=== PATIENT | female | born 1960 | race African-American/Black ===

== ENCOUNTER 2017-10-26 11:47 | Emergency (ER) | payer MEDICAID ==
[~2017-10-26] VITALS: Ht 162.6 cm; Wt 96.2 kg
[2017-10-26 14:13] VITALS: BP 175/62
== END 2017-10-26 15:16 | disposition home or self-care (01) ==
LOC: ER 11:47
DX: H61.23 Impacted cerumen, bilateral (principal); E11.9 Type 2 diabetes mellitus without complications; E78.5 Hyperlipidemia, unspecified; I10 Essential (primary) hypertension
CPT/HCPCS: 69209

== ENCOUNTER 2018-02-15 19:53 | Inpatient (IN) | payer MEDICAID ==
[~2018-02-15] VITALS: Ht 162.6 cm; Wt 96.2 kg
[2018-02-15 21:09] LABS: Urine Pregnacy Test Negative (Negative)
[2018-02-15 21:12] LABS: Basophils # (auto) 0.1 uL; Eosinophils # (auto) 0.2 uL; Eosinophils % (auto) 2.9 % (0.0-7.0); Hemoglobin 12.2 g/dL (12.2-16.2); Lymphocytes # (auto) 2.5 uL; Lymphocytes % (auto) 30.3 % (10.0-50.0); Mean Corpuscular Hemoglobin 27.8 pg (28.0-32.0); Mean Corpuscular Hgb Conc. 32.9 g/dL (32.0-36.0); Mean Corpuscular Volume 84.5 fL (80.0-100.0); Monocytes # (auto) 0.4 uL; Monocytes % (auto) 4.8 % (0.0-12.0); Nucleated Red Blood Cells % 0.1 %; Platelet Count (auto) 242 10^3/uL (140-450); Red Blood Cells 4.37 10^6/uL (4.0-5.20); Red Cell Distribution Width 15.6 % (11.8-14.3); White Blood Cell 8.3 10^3/uL (4.4-10.8)
[2018-02-15 21:13] LABS: Urine Bacteria MOD /hpf (None Seen); Urine Blood 1+ /uL (Negative); Urine Specific Gravity 1.015 (1.001-1.035); Urine WBC 407 /hpf (0 - 5)
[2018-02-15 21:21] LABS: Alcohol, Urine < 3.0 mg/dL (0-5); Amphetamine Screen, Urine NEGATIVE (NEGATIVE); Barbiturate Scree,Urine NEGATIVE (NEGATIVE); Benzodiazephine Screen, Urine NEGATIVE (NEGATIVE); Cannabinoid Screen, Urine NEGATIVE (NEGATIVE); Cocaine Screen, Urine NEGATIVE (NEGATIVE); Opiate Scree,Urine NEGATIVE (NEGATIVE); Phencyclidine Screen, Urine NEGATIVE (NEGATIVE)
[2018-02-15 21:26] LABS: Albumin 3.7 g/dL (3.4-5.0); Calcium 9.3 mg/dL (8.5-10.1); Magnesium 1.9 mg/dL (1.6-2.6); Potassium 3.8 mmol/L (3.5-5.1)
[2018-02-15 21:33] LABS: Bilirubin, Total 0.3 mg/dL (0.2-1.0); Total Protein 7.3 g/dL (6.4-8.2)
[2018-02-15 21:45] LABS: INR 0.98 (0.9-1.15); Partial Thromboplastin Time 28.2 sec (22.64-33.71); Prothrombin Time 10.7 sec (9.37-12.3)
[2018-02-16] MEDS ORDERED: NITROGLYCERIN 0.2MG/HR TOPICAL PATCH TD ONE (01:30)
[2018-02-16] MEDS ORDERED: ASPirin-EC 325mg tab PO ONE (01:30)
[2018-02-16] MEDS ORDERED: cefTRIAXone 1GM/10ml IVPUSH 10 ML IV ONE (02:15)
[2018-02-16] MEDS ORDERED: NITROGLYCERIN 0.4 MG SL TAB SL PRN (02:15)
[2018-02-16] MEDS ORDERED: ACETAMINOPHEN 500 MG TAB PO PRN (02:15)
[2018-02-16] MEDS ORDERED: MORPHINE SULFATE 4 MG/ML SYR/VIAL IV PRN (02:15)
[2018-02-16] MEDS ORDERED: LORazepam 0.5 MG TAB PO ONE (02:15)
[2018-02-16] MEDS ORDERED: ONDANSETRON HCL 4 MG/2 ML VIAL IV PRN (02:15)
[2018-02-16 05:15] VITALS: BP 113/64
[2018-02-16 05:39] VITALS: BP 113/64
[2018-02-16] MEDS ORDERED: AMLO5TAB2 PO (06:02)
[2018-02-16] MEDS ORDERED: ATOR40TA52 PO (06:02)
[2018-02-16] MEDS ORDERED: VALS320T15 PO (06:02)
[2018-02-16 07:38] LABS: Basophils # (auto) 0.1 uL; Eosinophils # (auto) 0.2 uL; Eosinophils % (auto) 2.9 % (0.0-7.0); Hematocrit 35.6 % (36.0-46.0); Hemoglobin 11.8 g/dL (12.2-16.2); Lymphocytes # (auto) 2.2 uL; Mean Corpuscular Hemoglobin 27.8 pg (28.0-32.0); Mean Corpuscular Hgb Conc. 33.2 g/dL (32.0-36.0); Mean Corpuscular Volume 83.7 fL (80.0-100.0); Monocytes # (auto) 0.4 uL; Monocytes % (auto) 6.6 % (0.0-12.0); Neutrophils # (auto) 3.9 uL; Neutrophils % (auto) 57.5 % (37.0-80.0); Platelet Count (auto) 219 10^3/uL (140-450); Red Blood Cells 4.25 10^6/uL (4.0-5.20); Red Cell Distribution Width 15.7 % (11.8-14.3); White Blood Cell 6.8 10^3/uL (4.4-10.8)
[2018-02-16 08:01] LABS: BUN/Creatinine Ratio 14.3; Calcium 8.4 mg/dL (8.5-10.1); Potassium 3.8 mmol/L (3.5-5.1)
[2018-02-16 08:05] LABS: Cholesterol 172 mg/dL (< 200); HDL Cholesterol 65 mg/dL (40-59); LDL Cholesterol 104 mg/dL (< 100); Triglycerides 78 mg/dL (< 150)
[2018-02-16] MEDS: HYDROcodone-ACET 5/325MG TAB PO PRN ×2 (08:11→16:11)
[2018-02-16 09:03] VITALS: BP 139/79
[2018-02-16] MEDS ORDERED: PANTOPRAZOLE 40 MG TAB PO SCH (10:00)
[2018-02-16] MEDS ORDERED: amLODIPine BESYLATE 5 MG TAB PO SCH (10:00)
[2018-02-16 12:41] VITALS: BP 139/79
[2018-02-16 12:58] VITALS: BP 147/71
[2018-02-16 17:00] VITALS: BP 152/61
[2018-02-16] MEDS ORDERED: ATORVASTATIN 20 MG TAB PO SCH (22:00)
[2018-02-17] MEDS ORDERED: cefTRIAXone 1GM/10ml IVPUSH 10 ML IV SCH (22:00)
== END 2018-02-16 18:48 | disposition home or self-care (01) | DRG 203 ==
LOC: ER 19:53 → TELE 19:54 → TELE-WESTW 02-16 04:35
PROVIDERS: ADMIT Nurse Practitioner Family; ATTEND Internal Medicine
DX: M94.0 Chondrocostal junction syndrome [Tietze] (principal); I11.9 Hypertensive heart disease without heart failure; E11.65 Type 2 diabetes mellitus with hyperglycemia; I16.0 Hypertensive urgency; R00.2 Palpitations; N39.0 Urinary tract infection, site not specified; E66.9 Obesity, unspecified; E78.5 Hyperlipidemia, unspecified; Z82.49 Family history of ischemic heart disease and other diseases of the circulatory system; Z83.3 Family history of diabetes mellitus; Z91.19 Patient's noncompliance with other medical treatment and regimen
CPT/HCPCS: 36415; 71045; 80048; 80053; 80061; 80307; 81001; 81025; 83735; 83880; 84484; 85025; 85610; 85730; 87086; 87088; 87186; 93005; 93306; 96374

== ENCOUNTER → 2019-01-04 | Emergency (ER) | payer MEDICAID ==
[~2019-01-04] MED LIST: AMLO5TAB13 PO; ATOR40TA52 PO; VALS320T15 PO
== END | disposition left against medical advice (07) ==
LOC: ER 11:33
DX: R10.9 Unspecified abdominal pain (principal); Z53.21 Procedure and treatment not carried out due to patient leaving prior to being seen by health care provider